=== PATIENT | male | born 1985 | race African-American/Black ===

== ENCOUNTER 2016-11-22 20:33 | Inpatient (IN) ==
[2016-11-22 22:06] LABS: MANUAL DIFF NEEDED? NO
[2016-11-22 22:08] LABS: BASO% 1.1 % (0.0-0.8); EOS# 0.12 X1000 (0.0-0.7); EOS% 0.9 % (0.0-10.0); HEMATOCRIT 46.8 % (42.0-52.0); HEMOGLOBIN 16.2 g/dL (14.0-18.0); IMM GRAN# 0.05 X1000 (0.0-0.04); IMM GRAN% 0.4 % (0.0-0.5); LYMPH% 14.3 % (20.5-51.1); MCH 28.1 PG (27-31); MCHC 34.6 g/dL (33-37); MCV 81.3 FL (81-99); MONO# 1.29 X1000 (0.11-0.59); MONO% 9.7 % (1.7-9.3); MPV 12.4 FL (7.4-10.4); NEUT% 73.6 % (42.2-75.2); PLT 217 X1000 (130-400); RBC 5.76 XMIL (4.7-6.1)
[2016-11-22] MEDS ORDERED: ZOFRAN ODT PO ONE (22:39)
[2016-11-22] MEDS ORDERED: G.I. COCKTAIL PO ONE (22:39)
[2016-11-22 22:47] LABS: AGAP 20; ALBUMIN 4.6 g/dL (3.5-5.0); ALKALINE PHOSPHATASE 193 U/L (32-122); AMYLASE 248 U/L (20-200); BUN 22 mg/dL (8-22); CALCIUM 10.1 mg/dL (8.8-10.2); CHLORIDE 72 mmol/L (98-107); COSMO 292; GOT 28 U/L (10-34); GPT 29 U/L (10-44); LIPASE 88 U/L (13-60); TCO2 26 mmol/L (25-35); TOTAL BILIRUBIN 0.55 mg/dL (0.20-1.00); TOTAL PROTEIN 7.7 g/dL (6.3-8.3)
[2016-11-22 23:08] LABS: SODIUM 115 mmol/L (136-145)
[2016-11-22] MEDS ORDERED: NS 1,000 ML IV ONE (23:12)
[2016-11-22] MEDS ORDERED: HUMULIN R IV ONE (23:12)
[2016-11-22 23:27] LABS: ALLEN TEST YES; BE 0.7 mmoll (-3.0-3.0); BLOOD TYPE ARTERIAL; DRAW SITE R BRACHIAL; O2(CT) 20.6 mL/dL (15.0-23.0); PCO2(98.6) 46 mmHg (35-45); PO2(98.6) 58 mmHg (60-100); SAMPLE BLOOD; SAO2 93.8 % (95.0-100.0); THB 16.6 g/dL (11.5-17.4); pH(98.6) 7.37 (7.35-7.45)
[2016-11-22 23:28] LABS: MODALITY ROOM AIR
--- NOTE | 2016-11-22 23:44 | PROVIDER DOCUMENTATION ---
This chart was entered by Drea Garrett Scribe, acting as scribe for Alyssa Brito PA. HPI-General Adult - General Chief Complaint: Vomiting Stated Complaint: VOMITING Time Seen by Provider: 11/22/16 22:02 Source: patient Allergies/Adverse Reactions: Patient Allergies Allergy/AdvReac Type Severity Reaction Status Date / Time No Known Allergies Allergy Verified 11/22/16 20:49 Home Medications: Home Medication List Medication Instructions Recorded Confirmed Last Taken Type Divalproex E.r. [Depakote ER] 2,000 mg PO QPM 11/22/16 11/22/16 11/21/16 History Fluconazole [Diflucan] 100 mg PO DAILY 11/22/16 11/22/16 11/22/16 History Levothyroxine [Synthroid] 50 microgm PO DAILY 11/22/16 11/22/16 11/21/16 History [place] Carbonate 600 mg PO BID 11/22/16 11/22/16 11/21/16 History Ziprasidone HCl 160 mg PO QPM 11/22/16 11/22/16 11/21/16 History - History of Present Illness -Gen Adult Nature of Presenting Problems: 31 Y/O M presents to ED with General Adult. Pt states that he has had 2 weeks of hx vomiting, mouth pain. Pt was seen at [facility] yesterday, diagnosed with thrush given meds. Pt was supposed to return for recheck and today was called and and was told to come to ED based off of lab work. Location of Pain/Injury: reports: mouth Pain Radiation: reports: no radiation Quality of Pain: reports: aching Severity: reports: moderate Onset/Duration: reports: other (2 weeks ago) Timing: reports: still present Associated Symptoms: reports: EENT symptoms, vomiting. denies: arm pain, diarrhea, fatigue, nausea Review of Systems - Adult - REVIEW OF SYSTEMS - ADULT Constitutional: denies: chills, fever Eyes: reports: no symptoms reported Ears, Nose, Mouth & Throat: reports: mouth/dental pain Cardiovascular: denies: chest pain Respiratory: denies: chronic cough, cough Gastrointestinal: reports: vomiting. denies: abdominal pain, diarrhea, nausea Genitourinary: reports: no symptoms reported Musculoskeletal: reports: no symptoms reported Integumentary: reports: no symptoms reported Neurological: reports: no symptoms reported Psychiatric: reports: no symptoms reported Endocrine: reports: no symptoms reported Hematologic/Lymphatic: reports: no symptoms reported Allergic/Immunologic: reports: no symptoms reported All Other Systems: Reviewed and Negative Past History - Adult - PAST MEDICAL HISTORY-ADULT Review of Records: reports: Old Records Reviewed, Nursing Assessment Review, Medications Reviewed, Social history reviewed & non-contributory. Physical Exam-General - PHYSICAL EXAM-ADULT Initial Vital Signs Reviewed: Yes - CONSTITUTIONAL General Appearance: alert, mild distress - EYES Eyes: PERRL/EOMI, pink conjunctivae - HEAD, EARS, NOSE, MOUTH & THROAT HENMT: normocephalic/atraumatic, pharyngeal erythema. negative: tonsillar exudate - NECK Neck: normal inspection. negative: lymphadenopathy - RESPIRATORY Respiratory: lungs clear, normal breath sounds. negative: crackles, rales, rhonchi, stridor, wheezing - CARDIOVASCULAR Cardiovascular: regular rate, rhythm. negative: bradycardia, tachycardia - GASTROINTESTINAL (ABDOMEN) Abdominal Exam: normal bowel sounds, soft, tenderness (generalized, mild). negative: distended, guarding, rigid - LYMPHATIC Lymphatic: no adenopathy - MUSCULOSKELETAL Back Exam: no CVA tenderness Extremity: normal gait - SKIN Integumentary: normal color, normal turgor - NEUROLOGIC Neurologic: no motor/sensory deficits - PSYCHIATRIC Psych/Mental Status: normal mood/affect, normal thought content, normal thought process, oriented x 3 Progress - PLAN OF CARE/RESULTS Progress/Plan/Lab Results: Vital Signs - 8 hr 11/22/16 20:42 Temperature 98.6 F Pulse Rate 98 H Respiratory Rate 18 Blood Pressure 151/115 O2 Sat by Pulse Oximetry 98 Laboratory Results - last 24 hr 11/22/16 21:58 WBC 13.29 H RBC 5.76 Hgb 16.2 Hct 46.8 MCV 81.3 MCH 28.1 MCHC 34.6 RDW Std Deviation 12.4 Plt Count 217 MPV 12.4 H Immature Gran % (Auto) 0.4 Neut % (Auto) 73.6 Lymph % (Auto) 14.3 L [place] % (Auto) 9.7 H Eos % (Auto) 0.9 Baso % (Auto) 1.1 H Immature Gran # (Auto) 0.05 H Neut # (Auto) 9.78 H Lymph # (Auto) 1.90 [place] # (Auto) 1.29 H Eos # (Auto) 0.12 Baso # (Auto) 0.15 Orders Category Date Time Status ACETONE SERUM [CHEM] Stat Lab 11/22/16 22:40 Uncollected AMYLASE [CHEM] Stat Lab 11/22/16 20:55 Received CBC WITH ELECTRONIC DIFF [HEME] Stat Lab 11/22/16 21:58 Completed COMPREHENSIVE METABOLIC PANEL [CHEM] Stat Lab 11/22/16 20:55 Received LIPASE [CHEM] Stat Lab 11/22/16 20:55 Received URINALYSIS W/POSS RFLX CULT-1 [URINALYSIS] Stat Lab 11/22/16 22:40 Uncollected Lido/[place]rell Alk/Al&mg Hydrox [G.i. Cocktail] Med 11/22/16 22:39 Discontinued 30 ml PO NOW ONE Ondansetron Odt [Zofran Odt] Med 11/22/16 22:39 Discontinued 4 mg PO NOW ONE Result Diagrams: 11/22/16 21:58 11/22/16 20:55 Departure - Departure Date of Disposition Decision: 11/22/16 Time of Disposition Decision: 23:37 DIAGNOSIS: Diabetes mellitus, new onset, Hyponatremia Disposition: ADMITTED INPATIENT 09 Certified Medical Emergency: Emergent Condition: Stable Referrals and Follow-Ups: None,PCP [Primary Care Provider] - - Critical Care Note This patient required my direct & personal management of CC.: No Attestation - Physician/ CARMELINA Attestation Patient care was provided by Advanced Practice Provider:: Yes Advanced Practice Provider:: Alyssa Brito Advanced Practice Provider documentation review:: The Mid-level provider documentation, treatment plan and medical decision making was reviewed by the physician who agrees with all treatment and medical decision making by the MLP. This chart was documented by the indicated scribe, (Drea Garrett Scribe) and accurately reflects the services I performed and decisions made by me, Alyssa Brito PA, as attested by the provider's signature.
[2016-11-23 00:30] LABS: URINE MICRO REVIEW NEEDED? NO; URINE SOURCE CLEAN CATCH
[2016-11-23 00:41] LABS: BILIRUBIN URINE NEGATIVE (NEGATIVE); BLOOD URINE NEGATIVE (NEGATIVE); COLOR STRAW; GLUCOSE URINE >1000 mg/dL (NEGATIVE); LEUKOCYTES URINE NEGATIVE (NEGATIVE); NITRITE URINE NEGATIVE (NEGATIVE); PH URINE 5.5; PROTEIN URINE NEGATIVE (NEGATIVE); SP GRAVITY URINE 1.019; TURBIDITY URINE CLEAR (CLEAR); UROBILINOGEN URINE NORMAL (NORMAL)
[2016-11-23 00:49] LABS: UR EPITHELIAL CELLS <10 /HPF (<10); URINE BACTERIA NEGATIVE /HPF; URINE CULTURE NEEDED? NO; URINE RBC <10 /HPF (<10); URINE WBC <10 /HPF (<10)
[2016-11-23] MEDS ORDERED: NS 1,000 ML IV ONE ×3 (01:09→03:00)
[2016-11-23 01:31] LABS: HEMOGLOBIN A1C 13.3 % (4.8-6.0)
[2016-11-23] MEDS ORDERED: SODIUM PHOSPHATE 30 MMOL in D5W 250 ML IV PRN (02:05)
[2016-11-23] MEDS ORDERED: POTASSIUM CHLORIDE 40 MEQ/SWI 40 MEQ/100 ML IVPB IV PRN (02:05)
[2016-11-23] MEDS ORDERED: D50W SYRINGE IV PRN (02:05)
[2016-11-23] MEDS ORDERED: HUMULIN R 100 UNIT in NS 99 ML IV SCH (02:05)
[2016-11-23] MEDS ORDERED: NS 1,000 ML IV SCH (02:05)
[2016-11-23] MEDS ORDERED: D5 1/2 NS 1,000 ML IV SCH (02:05)
[2016-11-23] MEDS ORDERED: ZOFRAN IV PRN (02:35)
[2016-11-23] MEDS ORDERED: TYLENOL PO PRN (02:35)
[2016-11-23] MEDS ORDERED: GEODON PO SCH ×3 (02:46→03:45)
[2016-11-23 03:58] LABS: AGAP 17; BUN 18 mg/dL (8-22); CALCIUM 8.6 mg/dL (8.8-10.2); CHLORIDE 87 mmol/L (98-107); COSMO 287; MAGNESIUM 2.2 mg/dL (1.5-2.7); POTASSIUM 3.8 mmol/L (3.5-5.1); SODIUM 131 mmol/L (136-145); TCO2 27 mmol/L (25-35)
[2016-11-23 04:08] LABS: INR 1.02; PROTIME 10.7 Seconds (9.2-11.7)
[2016-11-23] MEDS: DEPAKOTE ER PO SCH ×2 (04:31→21:18)
[2016-11-23] MEDS: GEODON PO SCH ×2 (04:32→21:19)
[2016-11-23 05:36] LABS: BASO% 0.8 % (0.0-0.8); EOS# 0.25 X1000 (0.0-0.7); EOS% 2.1 % (0.0-10.0); HEMATOCRIT 42.8 % (42.0-52.0); HEMOGLOBIN 14.9 g/dL (14.0-18.0); IMM GRAN# 0.02 X1000 (0.0-0.04); IMM GRAN% 0.2 % (0.0-0.5); LYMPH# 3.08 X1000 (1.2-3.4); LYMPH% 26.3 % (20.5-51.1); MANUAL DIFF NEEDED? YES; MCH 28.1 PG (27-31); MCHC 34.8 g/dL (33-37); MCV 80.8 FL (81-99); MONO# 1.28 X1000 (0.11-0.59); MONO% 10.9 % (1.7-9.3); MPV 12.3 FL (7.4-10.4); NEUT% 59.7 % (42.2-75.2); PLT 211 X1000 (130-400)
[2016-11-23 06:07] LABS: AGAP 16; BUN 16 mg/dL (8-22); CALCIUM 8.2 mg/dL (8.8-10.2); CHLORIDE 96 mmol/L (98-107); COSMO 287; MAGNESIUM 1.9 mg/dL (1.5-2.7); POTASSIUM 3.7 mmol/L (3.5-5.1); SODIUM 137 mmol/L (136-145); TCO2 25 mmol/L (25-35)
[2016-11-23] MEDS: POTASSIUM CHLORIDE 20 MEQ/SWI 20 MEQ/100 ML IVPB IV PRN ×3 (06:11→23:43)
[2016-11-23] MEDS: PRILOSEC PO SCH (06:12)
[2016-11-23 06:28] LABS: AMYLASE 154 U/L (20-200); LIPASE 74 U/L (13-60)
[2016-11-23 06:35] LABS: BANDS 2 % (0-1); LYMPHS 32 % (21-51); MONO 4 % (1-9)
--- NOTE | 2016-11-23 07:01 | EKG Report ---
Test Performed on : 11/23/2016 02:01:01 AM Test Reason : Hyperglycemic Hyperosmolar State Blood Pressure : / mmHG Vent. Rate : 082 BPM Atrial Rate : 082 BPM P-R Int : 160 ms QRS Dur : 118 ms QT Int : 508 ms P-R-T Axes : 047 -45 018 degrees QTc Int : 593 ms Normal sinus rhythm. Left anterior fascicular block Left ventricular hypertrophy with QRS widening Nonspecific T wave abnormality Prolonged QT Abnormal ECG No previous ECGs available Confirmed by Wilfredo Ochoa MD ([id number]) on 11/29/2016 1:39:43 PM
[2016-11-23] MEDS: LITHIUM CARBONATE PO SCH ×2 (08:53→21:19)
[2016-11-23] MEDS: SYNTHROID PO SCH (08:54)
[2016-11-23] MEDS: MYCELEX TROCHE PO SCH ×5 (08:54→21:19)
[2016-11-23 09:59] LABS: AGAP 10; BUN 13 mg/dL (8-22); CALCIUM 8.1 mg/dL (8.8-10.2); CHLORIDE 97 mmol/L (98-107); COSMO 281; POTASSIUM 3.5 mmol/L (3.5-5.1); SODIUM 136 mmol/L (136-145); TCO2 29 mmol/L (25-35)
--- NOTE | 2016-11-23 10:58 | HISTORY AND PHYSICAL ---
TIME: 0130 hours. CHIEF COMPLAINT: Abdominal pain with nausea, vomiting. HISTORY OF PRESENT ILLNESS: Mr. Hector Sellers is a 31-year-old, male, who [facility] with complaints of generalized abdominal pain with nausea and vomiting for 2 weeks. The patient states that prior to his arrival to the ER he was seen at [facility], who diagnosed him with oral candidiasis for which he was given Diflucan for. Though, based on his laboratory work, they instructed him to come to the ER for further evaluation. The patient reports that he has vomited approximately 1-2 times a day for the past 2 weeks. He also reports that he has had polydipsia and polyuria, though he denies any previous history of diabetes mellitus. He does have a history of seizures, though states he has not had 1 of these for several years, though he does have bipolar disorder for which he takes Depakote, lithium and Geodon for. He denies any dizziness, lightheadedness, headache, visual changes, chest pain, shortness of breath or cough. He denies any diarrhea and reports that his last bowel movement was 2-3 days ago. The patient reports that he usually has a bowel movement every other day. He denies any hematochezia or melena. He denies any dysuria, but does report urinary frequency. He denies any pain, numbness, tingling or swelling in his extremities, although did state that he had a little bit of cramping in his bilateral feet, although this has improved since receiving fluids in the ER he reports. Upon evaluation in the ER, the patient was found to have hyperglycemia with an initial serum glucose level of 1031, although his serum bicarbonate was 26. His anion gap was 20. His arterial blood gases: His pH was within normal range of 7.37, pCO2 was 46. He did have greater than 1000 glucose in his urine with a small amount of serum acetone. At this time, the patient will be admitted for further treatment and evaluation of his hyperglycemic hyperosmolar state, as well as new onset diabetes mellitus type 2. REVIEW OF SYSTEMS: A 12 point review of systems was conducted with the patient , and all were negative except for pertinent positives mentioned above in the HPI. I would like to add the patient did deny any fever, body aches or chills. PAST MEDICAL HISTORY: 1. Hypothyroidism. 2. Bipolar disorder. 3. Insomnia. 4. Seizures, although the patient reports that he has not had a seizure in several years. SOCIAL HISTORY: The patient is a 1-1/2 pack per day smoker and has been so since the age of 16. He denies any alcohol use at present, although did report at around age 16 he did drink approximately 6 beers a day for 3 years. He has had previous reports of marijuana use in the past. FAMILY HISTORY: Positive for hypertension in his mother and father. He does have a sister with hypertension as well and one with diabetes mellitus. ALLERGIES: Patient reports no known allergies. HOME MEDICATIONS: 1. Depakote extended release 2000 mg p.o. q.a.m. 2. Diflucan 100 mg p.o. daily. 3. Levothyroxine 50 mcg p.o. daily. 4. [place] 600 mg p.o. b.i.d. 5. Geodon 160 mg p.o. q.a.m. DIAGNOSTIC DATA/LABORATORY RESULTS: White blood cell count 13.29, hemoglobin 16.2, hematocrit 46.8, platelet count is 217. PT is 10.7, INR 1.02, PTT is 36.4. Sodium 115, potassium 5, chloride 72, bicarbonate 26, anion gap is 20, BUN 22, creatinine 1.6 with a GFR greater than 60. Glucose 1031. Hemoglobin A1c is 13.3. Serum osmolality is 310. Calcium 10.1, phosphorus 3.2, magnesium 2.2, total bilirubin 0.55. AST 28, ALT 29, alkaline phosphatase 193, CK 135, troponin less than 0.01. Amylase 248, lipase 88. There were small serum acetone noted. Valproic acid is 45.7, lithium 0.6. Arterial blood gases showed a pH of 7.37, pCO2 of 46, PO2 of 58, HC03 is 25.2 with a base excess of 0.7. Oxyhemoglobin was 88.5, O2 saturation was 93.8. Urinalysis was obtained via clean catch; it was positive for ketones and greater than 1000 glucose, otherwise within normal limits. EKG showed normal sinus rhythm with a left anterior fascicular block with left ventricular hypertrophy with QRS widening. There was also noted nonspecific T-wave abnormality and prolonged QT with a rate of 82 and a QTc of 593. PHYSICAL EXAMINATION: VITAL SIGNS: Temperature 97.6 degrees, heart rate 75, respirations 20, blood pressure 148/101, oxygen saturation is 95% on room air. GENERAL: Mr. Sellers is a 31-year-old, male, who is resting comfortably in the ER stretcher. He was awake, alert and able to answer all questions appropriately. HEENT: Head is atraumatic, normocephalic. Pupils are equal, round, reactive to light, were 3 mm bilaterally and brisk. Sub conjunctivae were pink. Oral mucosa is moist. Oropharynx is clear. The patient does have some oral candidiasis noted to his tongue and his hard palate. NECK: Supple. Trachea midline. CARDIOVASCULAR: Patient has normal S1, S2. No murmurs, gallops, rubs appreciated. Regular rate and rhythm. PULMONARY: Patient has symmetrical chest expansion bilaterally. Lung sounds are clear to auscultation in bilateral full hollins. ABDOMEN: Soft, nondistended, nontender. Bowel sounds were present in all 4 quadrants, were slightly hypoactive. EXTREMITIES: No cyanosis, clubbing, or edema noted. Motor and sensory were intact in all extremities. Pedal pulses were 3+ bilaterally. INTEGUMENTARY: Patient's skin color is normal for age. Dry and intact. No lesions or sores noted. NEUROLOGICAL: Patient is alert and oriented x4. Cranial nerves 2-12 are grossly intact. ASSESSMENT AND PLAN: 1. Hyperglycemic hyperosmolar state. For this we have placed the patient on an insulin drip per protocol. He did receive a 3 liter normal saline bolus. We will continue with normal saline at 125 mL/hour. We will closely monitor the patient's fingerstick blood sugars q. 1 hour and monitor his glucose levels closely. We will also do every 4 hour basic metabolic panel, magnesium and phosphorus laboratory draws. The patient's was hyponatremic at a sodium of 115, although corrected; this is 129.9. He has been placed in intensive care unit for close monitoring. We will do vital signs every 1 hour, as well as neuro checks. Strict intake and output monitoring. The patient at this time is not having any active nausea or vomiting. We will place him on diabetic clear liquids, and we will continue to monitor him closely. 2. Hypothyroidism. We will continue the patient's levothyroxine. Will draw a thyroid stimulating hormone level and continue to follow. 3. Bipolar disorder. We will continue the patient's lithium, Depakote and Geodon. 4. Nicotine dependence. We will general counsel the patient during his admission and upon discharge the importance of smoking cessation. 5. New onset diabetes mellitus. The patient did not have a previous history of diabetes mellitus. His hemoglobin A1c was 13.3. We will treat his current acute condition of hyperglycemic hyperosmolar state. The patient has been initially placed on an insulin drip. We will try to transition the patient to a sliding scale, and we will continue to monitor closely. The patient was placed in ICU with telemetry. DVT prophylaxis will be provided with SCDs. The patient did have some mild leukocytosis with a white blood cell count of 13.29. This could be reactive given that the patient has had nausea and vomiting. He denies any fever, body aches, or chills. He is afebrile. Lung sounds were clear to auscultation. Urinalysis showed no signs of infection. We will continue to monitor the patient closely for any signs of infection and continue to follow. Further orders and recommendations pending hospital course, diagnostic studies, and physician evaluation. Dictated by NANCY Marcial for Declan Serrano MD cc: Declan Serrano MD MTDD
--- NOTE | 2016-11-23 12:22 | PROGRESS NOTE ---
DATE: 11/23/2016 He does not feel a whole lot better. His family feels he is doing much better.Vital signs: Temperature 97.6 degrees, pulse 82. Respirations 20. Blood pressure 141/94. O2 saturation 97%. Height 5 feet 11 inches. Weight 217 pounds. Output is 1200 mL. ASSESSMENT AND PLAN: He was admitted with hyperglycemic hyperosmolar state. He has never known to have diabetes. Continue IV fluids. Continue present insulin drip per protocol. His sodium came up to 137, potassium 3.7. Will follow his magnesium as well. Note that the lipase was 74, amylase 154. So no sign of pancreatitis. Bipolar. He wants to be back on his bipolar medicines. cc: Armando Her MD
[2016-11-23 14:32] LABS: AGAP 11; BUN 12 mg/dL (8-22); CALCIUM 8.3 mg/dL (8.8-10.2); CHLORIDE 97 mmol/L (98-107); COSMO 281; MAGNESIUM 1.9 mg/dL (1.5-2.7); POTASSIUM 3.9 mmol/L (3.5-5.1); SODIUM 136 mmol/L (136-145); TCO2 28 mmol/L (25-35)
[2016-11-23 17:23] LABS: AGAP 8; BUN 11 mg/dL (8-22); CALCIUM 8.3 mg/dL (8.8-10.2); CHLORIDE 97 mmol/L (98-107); COSMO 271; MAGNESIUM 1.8 mg/dL (1.5-2.7); POTASSIUM 3.4 mmol/L (3.5-5.1); SODIUM 132 mmol/L (136-145); TCO2 27 mmol/L (25-35)
[2016-11-23 21:36] LABS: AGAP 8; BUN 10 mg/dL (8-22); CALCIUM 8.4 mg/dL (8.8-10.2); CHLORIDE 98 mmol/L (98-107); COSMO 278; MAGNESIUM 1.8 mg/dL (1.5-2.7); POTASSIUM 4.3 mmol/L (3.5-5.1); SODIUM 134 mmol/L (136-145); TCO2 28 mmol/L (25-35)
[2016-11-23] MEDS: NS 1,000 ML IV SCH (23:44)
[2016-11-24 04:37] LABS: AGAP 9; ALBUMIN 3.6 g/dL (3.5-5.0); ALKALINE PHOSPHATASE 114 U/L (32-122); BUN 9 mg/dL (8-22); CALCIUM 8.9 mg/dL (8.8-10.2); CHLORIDE 98 mmol/L (98-107); COSMO 272; GOT 41 U/L (10-34); GPT 26 U/L (10-44); MAGNESIUM 1.8 mg/dL (1.5-2.7); POTASSIUM 3.9 mmol/L (3.5-5.1); SODIUM 134 mmol/L (136-145); TCO2 27 mmol/L (25-35); TOTAL BILIRUBIN 0.33 mg/dL (0.20-1.00); TOTAL PROTEIN 5.8 g/dL (6.3-8.3)
[2016-11-24] MEDS: POTASSIUM CHLORIDE 20 MEQ/SWI 20 MEQ/100 ML IVPB IV PRN (06:21)
[2016-11-24] MEDS: SYNTHROID PO SCH (06:22)
[2016-11-24] MEDS: PRILOSEC PO SCH (06:22)
[2016-11-24] MEDS: NS 1,000 ML IV SCH ×3 (06:23→22:53)
[2016-11-24 07:30] LABS: HEMOGLOBIN A1C 13.7 % (4.8-6.0)
[2016-11-24] MEDS: LITHIUM CARBONATE PO SCH ×2 (08:04→21:32)
[2016-11-24] MEDS: MYCELEX TROCHE PO SCH ×5 (08:05→21:46)
[2016-11-24] MEDS: HUMALOG SUBQ SCH ×3 (10:15→21:34)
--- NOTE | 2016-11-24 13:20 | PROGRESS NOTE ---
DATE: 11/24/2016 He is feeling much better. Sugars have come down below 200 so we will take him off the insulin IV and put him on sliding scale. Pattern sugars. He feels much better. No nausea, no pain. Temp 98.6 degrees, pulse 80, respirations 25, blood pressure 138/102, CVP less than 6 cm.Lungs: Clear in all lung hollins. Cardiovascular: Regular rhythm and rate without murmur or S3. Abdomen: Soft. Skin: Is warm and dry. Urine output 4 L. LAB: Reviewed from yesterday. Hematocrit 42, stable. Chemistries: Anion gap down to 9. His bicarb is 27, BUN 9, creatinine 0.8. His blood sugars have been 193, 166, 181. ASSESSMENT AND PLAN: 1. Admitted with hyperglycemic hyperosmolar state and never known to have diabetes and doing much better with his fluids and acidosis has resolved. We will put him on sliding scale. I am going to start a split dose insulin just using 8 units 70/30 morning and evening. Needs instructions on giving insulin. He probably can move to the floor today. 2. Bipolar. Doing well. He is on Geodon 100 mg q.p.m. He takes lithium carbonate 600 mg b.i.d., and Divalproex ER 2000 mg q.p.m. Continue his present fluids at 125 mL an hour. Increase his activity. Probably move him to the floor. cc: Armando Her MD
[2016-11-24] MEDS: DEPAKOTE ER PO SCH (21:32)
[2016-11-24] MEDS: GEODON PO SCH (21:32)
[2016-11-24] MEDS ORDERED: INSULIN PEN NEEDLES ONE (21:44)
[2016-11-24] MEDS: HUMULIN 70/30 SUBQ SCH (21:46)
[2016-11-25] MEDS: PRILOSEC PO SCH (06:35)
[2016-11-25] MEDS: NS 1,000 ML IV SCH (06:35)
[2016-11-25] MEDS: SYNTHROID PO SCH (06:35)
[2016-11-25] MEDS: HUMALOG SUBQ SCH ×4 (06:39→20:43)
[2016-11-25] MEDS: LITHIUM CARBONATE PO SCH ×2 (08:29→20:41)
[2016-11-25] MEDS: HUMULIN 70/30 SUBQ SCH ×2 (08:29→20:42)
[2016-11-25] MEDS: MYCELEX TROCHE PO SCH ×5 (08:29→20:41)
--- NOTE | 2016-11-25 16:31 | PROGRESS NOTE ---
DATE: 11/25/2016 SUBJECTIVE: Patient is feeling much better. Sugars under good control. He is eating well. He would like to go home today. OBJECTIVE: Vital Signs: The temp is 99.1 degrees, pulse of 79, respirations 18, blood pressure 145/96. Eyes: Pupils are equal and round. Lungs: Lungs are clear in all lung hollins. Cardiovascular exam: Regular rhythm and rate without murmur or S3. Abdomen: Soft. Skin: Warm and dry. : Urine output was over 6.7 L. Blood sugars 190, 237 and 247. ASSESSMENT AND PLAN: 1. Presented with hyperosmolar hyperglycemic episode, mild acidosis. We will stop his fluids. He is eating well. Tolerating the insulin. He is supposed to get diabetic instruction. I did discuss the basics of diabetic diet and diabetic control. Want him to start checking sugars; he is a new diagnosed diabetic. 2. Bipolar, well-controlled. We will put him on a split dose of insulin 70/30, and I will go up to taking 12 units twice a day in hopes that he can go home tomorrow. LAB WORK: On the and the ntieth, his electrolytes look good. cc: Armando Her MD
[2016-11-25] MEDS: DEPAKOTE ER PO SCH (20:39)
[2016-11-25] MEDS: GEODON PO SCH (20:41)
[2016-11-26] MEDS: SYNTHROID PO SCH (06:14)
[2016-11-26] MEDS: PRILOSEC PO SCH (06:14)
[2016-11-26] MEDS: HUMALOG SUBQ SCH ×2 (06:14→12:55)
[2016-11-26] MEDS: MYCELEX TROCHE PO SCH ×2 (08:40→12:55)
[2016-11-26] MEDS: HUMULIN 70/30 SUBQ SCH (08:40)
[2016-11-26] MEDS: LITHIUM CARBONATE PO SCH (08:40)
--- NOTE | 2016-11-26 11:37 | DISCHARGE SUMMARY ---
ADMISSION DATE: 11/23/2016 DISCHARGE DATE: 11/26/2016 This is a 31-year-old black male, presented to the emergency room on 11/23/2016 with complaints of generalized abdominal pain, nausea and vomiting for over 2 weeks. The patient states that prior to arrival in the ER he was seen at [facility], diagnosed with oral candidiasis for which he was given Diflucan. Based on his laboratory work they instructed him come the ER for further evaluation. The patient reports that he has been vomiting approximately 1-2 times a day the past 2 weeks. He also reports he has had polydipsia and polyuria. Denies any previous history of diabetes mellitus. Has a history of seizures though states he has not had one of these in several years. Also history of bipolar disorder for which he is on Depakote, [place] and Geodon. He denies any dizziness, lightheadedness, headache, visual symptoms, chest pain, shortness of breath or cough. Denies any diarrhea. Reported that he had not had a bowel movement in 2 or 3 days. In the evaluation emergency room found to have hyperglycemia and hyperosmolar state from acidosis. Given IV fluids. Moved to the unit. He showed steady improvement. Able to turn off the IV insulin and put him on sliding scale. He has not known he had diabetes so this is a new diagnosis. I put him on split dosing insulin with 70/30 and I want him to check ambulatory blood sugars and advance that as he can per his primary care. DISCHARGE MEDICINES: Geodon 100 mg p.o. daily q.p.m. Prilosec 40 mg a day. [place] 600 mg p.o. b.i.d. Synthroid 50 mcg a day. Humulin 70/30 12 units before breakfast and supper. Depakote 2000 mg q.p.m. I gave him some Mycelex [place] as he needs it for oral thrush and will discharge him home. cc: Armando Her MD
[2016-11-26 12:16] VITALS: BP 137/87
[2016-11-26] MEDS ORDERED: INSULIN PEN NEEDLES ONE (12:53)
== END 2016-11-26 13:26 | disposition home or self-care (01) ==
LOC: ED 20:33 → SUATTDRO 11-23 01:42 → ICU 11-23 01:42 → 3N 11-24 13:13
PROVIDERS: ATTEND Emergency Medicine